=== PATIENT | female | born 1970 | race Caucasian/White ===

== ENCOUNTER 2016-05-23 06:07 | Emergency (ER) | payer OTHER ==
[~2016-05-23] VITALS: Ht 167.6 cm; Wt 120.1 kg
[2016-05-23 06:38] LABS: MCH 27.4 PG (29.0-34.0); MCHC 33.4 G/DL (30.0-36.0); MCV 81.9 FL (83-99); MEAN PLAT.VOLUME 9.2 uM^3 (9.5-12.4); PLATELET COUNT 364 K/uL (156-360); RBC DIS.WIDTH-CV 14.1 % (11.8-14.6); RBC DIS.WIDTH-SD 40.9 % (39-53); RED BLOOD COUNT 5.37 M/uL (3.80-5.20); WHITE BLOOD COUNT 20.5 K/uL (4.1-10.2)
[2016-05-23 06:47] LABS: CHLORIDE 102 mEq/L (99-109); POTASSIUM 3.8 mEq/L (3.7-5.4); SODIUM 138 mEq/L (136-147)
[2016-05-23 06:50] LABS: GLUCOSE 219 mg/dL (70-99)
[2016-05-23 06:51] LABS: ANION GAP 14 MEQ/L (2-14)
[2016-05-23 06:52] LABS: TOTAL BILIRUBIN 0.6 mg/dL (0.0-1.0)
[2016-05-23 06:53] LABS: ALKALINE PHOSPHATASE 95 IU/L (3-129); GFR ESTIMATE (CALCULATED) > 59 mL/min/
[2016-05-23 06:54] LABS: UREA NITROGEN (BUN) 13 mg/dL (9-23)
[2016-05-23 06:57] LABS: LIPASE 41 U/L (1.0-51.0)
[2016-05-23 07:03] LABS: QUANTITATIVE HCG < 4.0 MIU/ML
[2016-05-23 08:27] LABS: ADD MIUA? NO; BILIRUBIN NEGATIVE; BLOOD NEGATIVE; COLOR YELLOW ((YELLOW)); GLUCOSE (STRIP) NEGATIVE; KETONES NEGATIVE; LEUKOCYTES NEGATIVE; NITRITE NEGATIVE; PROTEIN (STRIP) 30; SPECIFIC GRAVITY 1.028 (1.000-1.030); UCUL ADDED? NO; UROBILINOGEN 0.2 MG/DL (0.2-1.0)
[2016-05-23] MEDS ORDERED: FLAGYL500 MG PO (11:29)
[2016-05-23] MEDS ORDERED: BENTYL20 MG PO (11:29)
[2016-05-23] MEDS ORDERED: ZOFRAN ODT4 MG PO (11:29)
[2016-05-23] MEDS ORDERED: IMODIUM MS REL1 EACH PO (11:29)
[2016-05-23 12:00] VITALS: BP 100/61
== END 2016-05-23 12:01 | disposition home or self-care (01) ==
LOC: EME 06:07
DX: R10.9 Unspecified abdominal pain (principal); R11.10 Vomiting, unspecified; R19.7 Diarrhea, unspecified
CPT/HCPCS: 74176; 80053; 81003; 83690; 84702; 85027; 87493; 99281; 99285; J7030